=== PATIENT | male | born 1990 | race Two or more races ===

== ENCOUNTER 2017-12-11 09:31 | Emergency (ER) | payer SELFPAY ==
[2017-12-11] MEDS ORDERED: Ketorolac INJ* 60 MG/2 ML VIAL IM ONE (09:48)
--- NOTE | 2017-12-11 09:53 | ED ---
Back Pain - HPI Summary HPI Summary: 27-year-old male presents with back pain for the past 2 weeks. He states his lower back. It does not radiate anywhere. He denies any injury. Denies any dysuria or hematuria. He has not tried anything for his pain. He denies any saddle anesthesia or loss of bowel or bladder. He denies any weakness in his legs. He is able to ambulate. He does not have a history of back pain. He has no medical conditions. friend was translating. - History of Current Complaint Chief Complaint: EDBackInjuryPain Stated Complaint: LOW BACK PAIN Time Seen by Provider: 12/11/17 09:39 Pain Intensity: 6 - Allergies/Home Medications Allergies/Adverse Reactions: Allergies Allergy/AdvReac Type Severity Reaction Status Date / Time No Known Allergies Allergy Verified 12/11/17 09:37 PMH/Surg Hx/FS Hx/Imm Hx Endocrine/Hematology History: Denies: Hx Anticoagulant Therapy Cardiovascular History: Denies: Hx Hypertension Infectious Disease History: No Infectious Disease History: Denies: Traveled Outside the [place] in Last 30 Days - Family History Known Family History: Negative: Diabetes - Social History Alcohol Use: None Substance Use Type: Reports: None Smoking Status (MU): Never Smoked Tobacco Review of Systems Negative: Fever Negative: Chest Pain Negative: Shortness Of Breath Positive: Myalgia - back pain All Other Systems Reviewed And Are Negative: Yes Physical Exam Triage Information Reviewed: Yes Vital Signs On Initial Exam: Initial Vitals Temp Pulse Resp BP Pulse Ox 98.3 F 72 18 122/69 98 12/11/17 09:35 12/11/17 09:35 12/11/17 09:35 12/11/17 09:35 12/11/17 09:35 Vital Signs Reviewed: Yes Appearance: Positive: Well-Appearing Skin: Positive: Warm, Dry Head/Face: Positive: Normal Head/Face Inspection Eyes: Positive: Normal, Conjunctiva Clear Respiratory/Lung Sounds: Positive: Clear to Auscultation, Breath Sounds Present Cardiovascular: Positive: Normal, RRR Abdomen Description: Negative: CVA Tenderness (R), CVA Tenderness (L) Musculoskeletal: Positive: Strength/ROM Intact - back, Other - good pulses, tenderness lower back, neg SLR, sensation grossly intact Neurological: Positive: Normal Gait Psychiatric: Positive: Normal Diagnostics - Vital Signs Vital Signs Temp Pulse Resp BP Pulse Ox 12/11/17 09:35 98.3 F 72 18 122/69 98 - Laboratory Lab Statement: Any lab studies that have been ordered have been reviewed, and results considered in the medical decision making process. - Radiology lumbar Xray Interpretation: No Acute Changes Radiology Interpretation Completed By: Radiologist Back Pain Course/Dx - Course Course Of Treatment: 27-year-old male presents with back pain for the past 2 weeks. He states his lower back. It does not radiate anywhere. He denies any injury. Denies any dysuria or hematuria. He has not tried anything for his pain. He denies any saddle anesthesia or loss of bowel or bladder. He denies any weakness in his legs. He is able to ambulate. He does not have a history of back pain. He has no medical conditions. On exam tenderness lower back. Negative CVA tenderness. Good strength lower extremity. Gait normal. X-ray normal. patient were feeling better after toradol. Continue ibuprofen at home. Patient understands and agrees with plan. - Diagnoses Differential Diagnosis/HQI/PQRI: Positive: Herniated Disc, Strain, Sprain Provider Diagnoses: Back pain Discharge - Discharge Plan Condition: Good Disposition: HOME Patient Education Materials: Back Pain (ED) Print Language: MALTESE Referrals: [facility] [Outside] Additional Instructions: Use ibuprofen or Tylenol for pain every 6 hours ice/heat area, move as much as possible Establish care with primary Return to ED if develop any new or worsening symptoms
--- NOTE | 2017-12-11 11:09 | RAD ---
Indication: Back pain. 5 views of lumbar spine are reviewed. The vertebral bodies appear normal in height. Disc spaces all well-preserved. Pedicles appear intact. IMPRESSION: Unremarkable lumbar spine.
[2017-12-11 11:28] VITALS: BP 124/69
== END 2017-12-11 11:25 | disposition home or self-care (01) ==
LOC: ED 09:31
DX: M54.5 Low back pain (principal)
CPT/HCPCS: 72110; 96372; 99281; J1885